=== PATIENT | female | born 1965 | race American Indian/Alaskan Native ===

== ENCOUNTER 2017-04-18 08:13 | Emergency (ER) | payer SELFPAY ==
[2017-04-18 08:27] VITALS: BP 153/81
[2017-04-18] MEDS ORDERED: TESSALON PERLES PO ONE (11:33)
--- NOTE | 2017-04-18 11:38 | Emergency Department Report ---
- General Chief Complaint: Upper Respiratory Infection Stated Complaint: congestion Time Seen by Provider: 04/18/17 11:23 Source: patient Mode of arrival: Ambulatory Limitations: No Limitations - History of Present Illness Initial Comments: This is a 52-year-old female nontoxic, well nourished in appearance, no acute signs of distress presents to the ED with c/o of cough, nasal congestion, right ear pain, sore throat 3 days. Patient describes that that the cough as well as yellow/green mucus production. Patient denies any chest pain, shortness of breath, hemoptysis, fever, chills, nausea, vomiting, dental pain, headache or stiff neck. Denies any allergies. Past medical history includes hypertension. Patient denies any calf pain or tenderness. Denies recent travels, Long car rides, or recent hospital stays. MD Complaint: cough, sore throat, rhinorrhea, nasal congestion -: days(s) (3) Severity: mild Severity scale (0 -10): 8 Quality: aching Consistency: constant Improves With: nothing Worsens With: nothing Associated Symptoms: rhinorrhea, nasal congestion, sore throat, cough. denies: fever, chills, myalgias, diaphoresis, headache, stiff neck, chest pain, shortness of breath, abdominal pain, nausea, vomiting, diarrhea, dysuria, rash, confusion, right sweats, weight loss, epistaxis, hoarseness, ear pain Treatments Prior to Arrival: none - Related Data Previous Rx's Medication Instructions Recorded Last Taken Type Azithromycin [Zithromax Z-MARGUERITE] 250 mg PO DAILY #6 tablet 04/18/17 Unknown Rx Benzonatate [Tessalon Perle] 100 mg PO Q8H #20 capsule 04/18/17 Unknown Rx Ondansetron [Zofran Odt] 4 mg PO Q12H #12 tab.rapdis 04/18/17 Unknown Rx Allergies Allergy/AdvReac Type Severity Reaction Status Date / Time No Known Allergies Allergy Unverified 04/18/17 08:23 ED Review of Systems ROS: Stated complaint: congestion Other details as noted in HPI Constitutional: denies: chills, fever Eyes: denies: eye pain, eye discharge, vision change ENT: ear pain, throat pain Respiratory: cough. denies: shortness of breath, wheezing Cardiovascular: denies: chest pain, palpitations Endocrine: no symptoms reported Gastrointestinal: denies: abdominal pain, nausea, diarrhea Genitourinary: denies: urgency, dysuria, discharge Musculoskeletal: denies: back pain, joint swelling, arthralgia Skin: denies: rash, lesions Neurological: denies: headache, weakness, paresthesias Psychiatric: denies: anxiety, depression Hematological/Lymphatic: denies: easy bleeding, easy bruising ED Past Medical Hx - Past Medical History Hx Hypertension: Yes - Surgical History Past Surgical History?: Yes Additional Surgical History: Back surgery x 2 - Social History Smoking Status: Never Smoker Substance Use Type: None - Medications Home Medications: Home Medications Medication Instructions Recorded Confirmed Last Taken Type Azithromycin [Zithromax Z-MARGUERITE] 250 mg PO DAILY #6 tablet 04/18/17 Unknown Rx Benzonatate [Tessalon Perle] 100 mg PO Q8H #20 capsule 04/18/17 Unknown Rx Ondansetron [Zofran Odt] 4 mg PO Q12H #12 tab.rapdis 04/18/17 Unknown Rx ED Physical Exam - General Limitations: No Limitations General appearance: alert, in no apparent distress - Head Head exam: Present: atraumatic, normocephalic, normal inspection - Eye Eye exam: Present: normal appearance, PERRL, EOMI. Absent: scleral icterus, conjunctival injection, nystagmus, periorbital swelling, periorbital tenderness Pupils: Present: normal accommodation - ENT ENT exam: Present: mucous membranes moist, TM's normal bilaterally, normal external ear exam - Expanded ENT Exam Expanded Ear exam: Present: normal external inspection Mouth exam: Present: normal external inspection, tongue normal. Absent: drooling, trismus, muffled voice, tongue elevation, laceration Teeth exam: Present: normal inspection Throat exam: Positive: tonsillar erythema, other (Uvula midline. No abscess or swelling noted. ). Negative: tonsillomegaly, tonsillar exudate, R peritonsillar mass, L peritonsillar mass - Neck Neck exam: Present: normal inspection, full ROM. Absent: tenderness, meningismus, lymphadenopathy, thyromegaly - Respiratory Respiratory exam: Present: normal lung sounds bilaterally. Absent: respiratory distress, wheezes, rales, rhonchi, stridor, chest wall tenderness, accessory muscle use, decreased breath sounds, prolonged expiratory - Cardiovascular Cardiovascular Exam: Present: regular rate, normal rhythm, normal heart sounds. Absent: bradycardia, tachycardia, irregular rhythm, systolic murmur, diastolic murmur, rubs, gallop - GI/Abdominal GI/Abdominal exam: Present: soft, normal bowel sounds. Absent: distended, tenderness, guarding, rebound, rigid, diminished bowel sounds - Rectal Rectal exam: Present: deferred - Extremities Exam Extremities exam: Present: normal inspection, full ROM, normal capillary refill. Absent: tenderness, pedal edema, joint swelling, calf tenderness - Back Exam Back exam: Present: normal inspection, full ROM. Absent: tenderness, CVA tenderness (R), CVA tenderness (L), muscle spasm, paraspinal tenderness, vertebral tenderness, rash noted - Neurological Exam Neurological exam: Present: alert, oriented X3, CN II-XII intact, normal gait, reflexes normal - Psychiatric Psychiatric exam: Present: normal affect, normal mood - Skin Skin exam: Present: warm, dry, intact, normal color. Absent: rash ED Course Vital Signs 04/18/17 08:23 Temperature 98.1 F Pulse Rate 89 Respiratory 16 Rate Blood Pressure 153/81 O2 Sat by Pulse 98 Oximetry - Reevaluation(s) Reevaluation #1: 04/18/17 11:38 Patient is speaking in full sentences with no signs of distress noted. ED Medical Decision Making - Medical Decision Making 52-year-old female presents with upper respiratory infection. Patient is stable and was examined by me. Patient refused chest xray stated she just wants to get treated. I instructed and educated patient of my concerns and further evaluation the patient states she is sign AMA and shortness be treated empirically. I will treat patient with azithromycin, Tessalon Perles. Patient also stated that she gets nauseous when taking pills sp i will give patient a Zofran. Patient received Tessalon Perles in the ED. Patient was instructed Follow-up with a primary care doctor in 3-5 days or if symptoms worsen and continue return to emergency room as soon as possible. At time time of discharge, the patient does not seem toxic or ill in appearance. No acute signs of distress noted. Patient agrees to discharge treatment plan of care. No further questions noted by the patient. Critical care attestation.: If time is entered above; I have spent that time in minutes in the direct care of this critically ill patient, excluding procedure time. ED Disposition Clinical Impression: Upper respiratory infection Qualifiers: URI type: unspecified URI Qualified Code(s): J06.9 - Acute upper respiratory infection, unspecified Disposition: DC-07 LEFT AGAINST MED ADVICE Is pt being admited?: No Does the pt Need Aspirin: No Condition: Stable Instructions: Benzonatate (By mouth), Azithromycin (By mouth), Upper Respiratory Infection (ED), Ondansetron (By mouth) Additional Instructions: Follow-up with a primary care doctor in 3-5 days or if symptoms worsen and continue return to emergency room as soon as possible. Prescriptions: Azithromycin [Zithromax Z-MARGUERITE] 250 mg PO DAILY #6 tablet Benzonatate [Tessalon Perle] 100 mg PO Q8H #20 capsule Ondansetron [Zofran Odt] 4 mg PO Q12H #12 tab.rapdis Referrals: PRIMARY CARE, [Primary Care Provider] - 3-5 Days THIERRY DE LEON MD [Staff Physician] - 3-5 Days [facility] [Outside] - 3-5 Days [facility] [place] [Outside] - 3-5 Days Forms: Work/School Release Form(ED), AMA Form
== END 2017-04-18 13:14 | disposition left against medical advice (07) ==
LOC: ED 08:13
DX: J06.9 Acute upper respiratory infection, unspecified (principal)
CPT/HCPCS: 99282

== ENCOUNTER 2017-11-16 10:59 | Emergency (ER) | payer SELFPAY ==
[2017-11-16 11:20] VITALS: BP 154/81
--- NOTE | 2017-11-16 12:50 | Emergency Department Report ---
ED Upper Extremity Inj HPI - General Chief Complaint: Shoulder Injury Stated Complaint: SEVERE RT SHOULDER PAIN Time Seen by Provider: 11/16/17 12:40 Source: patient Mode of arrival: Ambulatory Limitations: No Limitations - History of Present Illness Initial Comments: Ms. Pennington is a healthy 52-year-old female who was injured on her job. In July , she had direct contact with a forklift heavy equipment. Her shoulder was also struck by a heavy box. She has not had any follow-up care since her initial visit at [facility] emergency system. She was referred to orthopedic surgeon. However she has yet to follow up. She is unable to her follow-up. No current access to healthcare. She requests anti-inflammatory medications for pain relief. Pain is worse with movement. According to discharge report from July 2017, she was diagnosed with right AC separation. Complaint: Injury to:: right, shoulder -: Gradual, month(s) (3) Other Extremity Injury: Shoulder: Right Place: work Worsens With: movement of extremity Context: direct blow - Related Data Previous Rx's Medication Instructions Recorded Last Taken Type Azithromycin [Zithromax Z-MARGUERITE] 250 mg PO DAILY #6 tablet 04/18/17 Unknown Rx Benzonatate [Tessalon Perle] 100 mg PO Q8H #20 capsule 04/18/17 Unknown Rx Ondansetron [Zofran Odt] 4 mg PO Q12H #12 tab.rapdis 04/18/17 Unknown Rx Allergies Allergy/AdvReac Type Severity Reaction Status Date / Time No Known Allergies Allergy Unverified 04/18/17 08:23 ED Review of Systems ROS: Stated complaint: SEVERE RT SHOULDER PAIN Other details as noted in HPI Constitutional: denies: fever, malaise Musculoskeletal: arthralgia. denies: back pain, joint swelling, myalgia Neurological: denies: numbness, paresthesias ED Past Medical Hx - Past Medical History Previous Medical History?: Yes Hx Hypertension: Yes Additional medical history: shoulder injury - Surgical History Past Surgical History?: Yes Additional Surgical History: Back surgery x 2 - Social History Smoking Status: Never Smoker Substance Use Type: Prescribed - Medications Home Medications: Home Medications Medication Instructions Recorded Confirmed Last Taken Type Azithromycin [Zithromax Z-MARGUERITE] 250 mg PO DAILY #6 tablet 04/18/17 Unknown Rx Benzonatate [Tessalon Perle] 100 mg PO Q8H #20 capsule 04/18/17 Unknown Rx Ondansetron [Zofran Odt] 4 mg PO Q12H #12 tab.rapdis 04/18/17 Unknown Rx ED Physical Exam - General Limitations: No Limitations General appearance: alert, in no apparent distress - Head Head exam: Present: atraumatic, normocephalic - Eye Eye exam: Present: normal appearance - ENT ENT exam: Present: mucous membranes moist - Neck Neck exam: Present: normal inspection. Absent: tenderness, meningismus - Respiratory Respiratory exam: Absent: respiratory distress - Neurological Exam Neurological exam: Present: alert, oriented X3 - Psychiatric Psychiatric exam: Present: normal affect, normal mood - Skin Skin exam: Present: warm, dry, intact, normal color. Absent: rash ED Course Vital Signs 11/16/17 11:15 Temperature 98.7 F Pulse Rate 80 Respiratory 20 Rate Blood Pressure 154/81 O2 Sat by Pulse 99 Oximetry ED Medical Decision Making - Medical Decision Making Ms. Pennington is 52 yo female who presents with right shoulder pain for 3 months. I suspect rotator cuff injury. She was referred to orthopedic surgeon. I have provided referral to outside clinic. Rx: anthony Critical care attestation.: If time is entered above; I have spent that time in minutes in the direct care of this critically ill patient, excluding procedure time. ED Disposition Clinical Impression: Injury of right rotator cuff Disposition: DC-01 TO HOME OR SELFCARE Is pt being admited?: No Does the pt Need Aspirin: No Condition: Stable Instructions: Rotator Cuff Injury (ED) Referrals: [facility] [Outside] - 3-5 Days Time of Disposition: 12:50
== END 2017-11-16 13:07 | disposition home or self-care (01) ==
LOC: ED 10:59
DX: S46.001A Unspecified injury of muscle(s) and tendon(s) of the rotator cuff of right shoulder, initial encounter (principal); I10 Essential (primary) hypertension; Z98.890 Other specified postprocedural states; X50.0XXA Overexertion from strenuous movement or load, initial encounter; Y93.89 Activity, other specified; Y92.89 Other specified places as the place of occurrence of the external cause; Y99.8 Other external cause status
CPT/HCPCS: 99282

== ENCOUNTER 2019-06-22 08:41 | Emergency (ER) | payer SELFPAY ==
[2019-06-22 08:54] VITALS: BP 153/90
== END 2019-06-22 08:45 | disposition left against medical advice (07) ==
LOC: ED 08:41
DX: M54.5 Low back pain (principal); Z53.21 Procedure and treatment not carried out due to patient leaving prior to being seen by health care provider